=== PATIENT | female | born 1965 | race Asian ===

== ENCOUNTER 2020-12-11 08:36 | Outpatient (CLI) | payer OTHER | END 2020-12-11 08:37 | disposition home or self-care (01) | LOC: BICCT 08:36 | PROVIDERS: ATTEND Internal Medicine Hematology & Oncology | DX: C18.8 Malignant neoplasm of overlapping sites of colon (principal); J90 Pleural effusion, not elsewhere classified; N20.0 Calculus of kidney; K82.8 Other specified diseases of gallbladder; Z98.890 Other specified postprocedural states | CPT/HCPCS: 74177 ==

== ENCOUNTER 2021-10-09 12:23 | Outpatient (CLI) | payer OTHER | END 2021-10-09 12:24 | disposition home or self-care (01) | LOC: CT 12:23 | PROVIDERS: ATTEND Internal Medicine Hematology & Oncology | DX: C18.8 Malignant neoplasm of overlapping sites of colon (principal); R91.1 Solitary pulmonary nodule; D50.8 Other iron deficiency anemias | CPT/HCPCS: 71250; 74177; 82565 ==

== ENCOUNTER 2023-01-01 18:34 | Emergency (ER) | payer OTHER, SELFPAY ==
[2023-01-01] MEDS ORDERED: Ibuprofen 200 MG TAB ONE (19:15)
[2023-01-01 20:23] LABS: SARS-CoV-2 NAA Rapid Test Not Detected (NotDetected)
== END 2023-01-01 19:22 | disposition home or self-care (01) ==
LOC: ERS 18:34
DX: R50.9 Fever, unspecified (principal); Z20.822 Contact with and (suspected) exposure to COVID-19
CPT/HCPCS: 99283

== ENCOUNTER 2023-11-25 13:02 | Outpatient (CLI) | payer BC | END 2023-11-25 13:03 | disposition home or self-care (01) | LOC: BICMAMMO 13:02 | PROVIDERS: ATTEND Family Medicine | DX: Z12.31 Encounter for screening mammogram for malignant neoplasm of breast (principal); Z91.89 Other specified personal risk factors, not elsewhere classified; Z85.038 Personal history of other malignant neoplasm of large intestine | CPT/HCPCS: 77063; 77067 ==